=== PATIENT | female | born 1980 | race African-American/Black ===

== ENCOUNTER 2018-09-11 12:32 | Emergency (ER) | payer SELFPAY ==
[~2018-09-11] VITALS: Ht 157.5 cm; Wt 91.9 kg
[2018-09-11 12:46] VITALS: BP 114/78
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
== END 2018-09-11 13:36 | disposition home or self-care (01) ==
LOC: ED 13:30
DX: S33.5XXA Sprain of ligaments of lumbar spine, initial encounter (principal); Z88.0 Allergy status to penicillin; Z87.891 Personal history of nicotine dependence; V49.59XA Passenger injured in collision with other motor vehicles in traffic accident, initial encounter; Y93.89 Activity, other specified; Y92.89 Other specified places as the place of occurrence of the external cause; Y99.8 Other external cause status
CPT/HCPCS: 99283